=== PATIENT | male | born 1985 | race Caucasian/White ===

== ENCOUNTER 2018-01-25 21:57 | Emergency (ER) | payer OTHER ==
[2018-01-25] MEDS ORDERED: Adacel (T-DAP) 0.5 ML VIAL ONE (22:48)
[2018-01-25] MEDS ORDERED: Bacitracin Zinc 1 Packet ONE (23:04)
== END 2018-01-25 23:24 | disposition home or self-care (01) ==
LOC: NAV ERS 21:57
DX: S61.212A Laceration without foreign body of right middle finger without damage to nail, initial encounter (principal); F41.9 Anxiety disorder, unspecified; F90.9 Attention-deficit hyperactivity disorder, unspecified type; F21 Schizotypal disorder; F17.210 Nicotine dependence, cigarettes, uncomplicated; W25.XXXA Contact with sharp glass, initial encounter; Y92.009 Unspecified place in unspecified non-institutional (private) residence as the place of occurrence of the external cause
CPT/HCPCS: 12001; 90471; 90715; Q4049